=== PATIENT | female | born 1975 | race Caucasian/White ===

== ENCOUNTER 2018-01-24 13:13 | Emergency (ER) | payer MEDICAID ==
[~2018-01-24] VITALS: Ht 170.2 cm; Wt 78.6 kg
[2018-01-24 13:49] VITALS: Ht 170.2 cm; Wt 78.6 kg
[2018-01-24] MEDS ORDERED: IMURAN50 MG PO (13:53)
[2018-01-24] MEDS ORDERED: VERELAN120 MG PO (13:53)
[2018-01-24] MEDS ORDERED: PHENERGAN25 M1 PO (13:54)
[2018-01-24] MEDS ORDERED: HYDROXYZINE HCL10 MG PO (13:54)
[2018-01-24] MEDS ORDERED: FENTANYL (13:56)
[2018-01-24] MEDS ORDERED: SEROQUEL100 MG PO (13:57)
[2018-01-24 15:30] VITALS: BP 140/73
== END 2018-01-24 15:30 | disposition home or self-care (01) ==
LOC: D.ER 13:13
DX: G43.909 Migraine, unspecified, not intractable, without status migrainosus (principal); F17.200 Nicotine dependence, unspecified, uncomplicated